=== PATIENT | male | born 1995 | race African-American/Black ===

== ENCOUNTER 2021-12-08 16:28 | Emergency (ER) | payer MEDICAID ==
[~2021-12-08] VITALS: Ht 182.9 cm; Wt 91.0 kg
[2021-12-08] MEDS ORDERED: HYDROCODONE/ACETAMINOPHEN 5/325MG TABLET PO PRN (20:30)
[2021-12-08] MEDS ORDERED: IBUP-2029 MT (22:08)
[2021-12-08] MEDS ORDERED: HYDR-4001 MT (22:08)
[2021-12-08 22:26] VITALS: BP 122/78
== END 2021-12-08 22:35 | disposition home or self-care (01) ==
LOC: ER 16:28
DX: S62.395A Other fracture of fourth metacarpal bone, left hand, initial encounter for closed fracture (principal); X58.XXXA Exposure to other specified factors, initial encounter; Y93.89 Activity, other specified; Y92.9 Unspecified place or not applicable
CPT/HCPCS: 29125; 73130; 99283